=== PATIENT | female | born 1955 | race Caucasian/White ===

== ENCOUNTER 2016-05-09 16:59 | Inpatient (IN) | payer BC ==
[2016-05-09] MEDS ORDERED: IPRATROPIUM-ALBUTEROL 3 ML NEB INHALATION STA ×2 (17:38→19:38)
[2016-05-09] MEDS ORDERED: SODIUM CHLORIDE 0.9% 1,000 ML IV STA (17:38)
[2016-05-09] MEDS ORDERED: methylPREDNISolone SOD SUCCI 125 MG/2 ML VIAL IV STA (17:38)
[2016-05-09 17:56] LABS: Basophils # (A) 0.1 k/uL (0-0.2); Basophils % (A) 1 %; CHCM 30.1; Eosinophils # (A) 0.2 k/uL (0-0.7); Eosinophils % (A) 2 %; HCT 38.4 % (34.0-46.0); HDW 3.19; HGB 11.7 gm/dL (11.4-16.0); Hypochromasia Marked; Luc # (Auto) 0.28; Luc % (Auto) 4; Lymphocytes # (A) 1.1 k/uL (1.0-4.8); Lymphocytes % (A) 14 %; MCH 28.5 pg (25.0-35.0); MCHC 30.6 g/dL (31.0-37.0); MCV 93.2 fL (80.0-100.0); Mean Platelet Volume 8.8; Monocytes # (A) 0.7 k/uL (0-1.0); Monocytes % (A) 8 %; Neutrophils # (A) 5.6 k/uL (1.3-7.7); Neutrophils % (A) 71 %; RBC 4.13 m/uL (3.80-5.40); RDW 14.4 % (11.5-15.5); WBC 7.9 k/uL (3.8-10.6); WBC (Perox) 8.05
[2016-05-09 18:05] LABS: ALT 29 U/L (9-52); AST 28 U/L (14-36); Alkaline Phosphatase 55 U/L (38-126); Blood Urea Nitrogen 24 mg/dL (7-17); Calcium 8.8 mg/dL (8.4-10.2); Chloride 82 mmol/L (98-107); Glucose 127 mg/dL (74-99); Magnesium 1.9 mg/dL (1.6-2.3); Non-African American GFR(MDRD) >60 (>60 ml/min/1.73 sqM); Potassium 4.6 mmol/L (3.5-5.1); Sodium 136 mmol/L (137-145); Total Bilirubin 0.3 mg/dL (0.2-1.3); Total Protein 6.6 g/dL (6.3-8.2)
[2016-05-09 18:11] LABS: Anion Gap 7 mmol/L
[2016-05-09 18:12] LABS: INR 0.9 (<1.1); Prothrombin Time 9.7 sec (9.0-12.0)
[2016-05-09 18:14] LABS: Carbon Dioxide 47 mmol/L (22-30)
[2016-05-09 18:31] LABS: Creatine Kinase MB 2.1 ng/mL (0.0-2.4); Troponin I 0.017 ng/mL (0.000-0.034)
[2016-05-09 18:55] LABS: ABG PH 7.36 (7.35-7.45)
[2016-05-09 18:56] LABS: ABG HCO3 49 mmol/L (21-25); ABG PCO2 90 mmHg (35-45); ABG PO2 76 mmHg (83-108); ABG TCO2 52 mmol/L (19-24)
--- NOTE | 2016-05-09 19:09 | ED ---
SOB HPI - General Chief Complaint: Shortness of Breath Stated Complaint: KRIS Time Seen by Provider: 05/09/16 17:28 Source: patient Mode of arrival: wheelchair Limitations: no limitations - History of Present Illness Initial Comments: This 60-year-old white female presents with a complaint of shortness of breath which is been present for last 3 days. She denies any fever or cough. 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 She utilizes 3 L of oxygen per nasal cannula 24 hours per day. She sees Dr. Rai from pulmonology in regard to her severe COPD. She does relate that she previously was on BiPAP at home but this was stopped approximately 2 weeks ago as she is becoming significantly hypoxic with oxygen levels down into the high 60s and low 70s. Her CO2 apparently has been increasing regularly since then. She was just admitted at [facility] earlier this month. Her CO2 was approximately 87 at that time. The family member relates that she does get confused at times but not currently. She was apparently 70% pulse ox upon entrance to the ER. She denies any actual chest pain. No other complaints or modifying factors. - Related Data Home Medications Medication Instructions Recorded Confirmed Albuterol Nebulized [Ventolin 2.5 mg INHALATION RT-QID PRN 05/09/16 05/09/16 Nebulized] Aspirin EC [Ecotrin Low Dose] 81 mg PO DAILY 05/09/16 05/09/16 Fluticasone/Salmeterol [Advair 1 puff INHALATION RT-BID 05/09/16 05/09/16 500-50 Diskus] Folic Acid/Multivit-Min/Lutein 1 tab PO DAILY 05/09/16 05/09/16 [Therapeutic-M Tablet] Furosemide [Lasix] 1 tab PO DAILY 05/09/16 05/09/16 Metolazone [Zaroxolyn] 5 mg PO DAILY PRN 05/09/16 05/09/16 Potassium Chloride [Klor-Con] 1 tab PO DAILY 05/09/16 05/09/16 Tiotropium 18 Mcg/Puff [Spiriva] 1 cap INHALATION RT-DAILY 05/09/16 05/09/16 Allergies Allergy/AdvReac Type Severity Reaction Status Date / Time cephalexin [From Keflex] Allergy Unknown Verified 05/09/16 19:00 Review of Systems ROS Statement: Those systems with pertinent positive or pertinent negative responses have been documented in the HPI. ROS Other: All systems not noted in ROS Statement are negative. Past Medical History Past Medical History: Cancer, Heart Failure, COPD Additional Past Medical History / Comment(s): skin cancer History of Any Multi-Drug Resistant Organisms: None Reported Past Surgical History: No Surgical Hx Reported Past Psychological History: No Psychological Hx Reported Smoking Status: Former smoker Past Alcohol Use History: Occasional Past Drug Use History: None Reported General Exam - General Exam Comments Initial Comments: GENERAL: The patient is well nourished and well hydrated. VITAL SIGNS: Heart rate, blood pressure, respiratory rate reviewed as recorded in nurse's notes. EYES: Pupils are round and reactive. Extraocular movements are intact. No conjunctival / lid redness or swelling. ENT: No external evidence of injury, swelling, or ecchymosis. Airway is patent. Throat is clear. NECK: Nontender. No swelling or evidence of injury. No subcutaneous emphysema. Trachea is midline. No thyroid mass. HEART: Regular rate and rhythm. Good peripheral pulses. LUNGS/CHEST: There is decreased aeration bilaterally. No ecchymosis, subcutaneous emphysema, or tenderness. ABDOMEN: Abdomen soft without tenderness. No palpable masses or organomegaly. No peritoneal signs. No abdominal wall swelling or ecchymosis. EXTREMITIES: No extremity tenderness. Normal muscle tone and function. No thoracolumbar tenderness. NEUROLOGIC: Sensation is grossly intact. Cranial nerve exam reveals face is symmetrical, tongue is midline, speech is clear. SKIN: No abrasions or ecchymosis is noted. No induration or masses noted. PSYCHIATRIC: Alert and oriented. Appropriate behavior and judgment. Limitations: no limitations Course Vital Signs 05/09/16 05/09/16 05/09/16 17:12 17:40 17:45 Temperature 99.9 F H 98.8 F Pulse Rate 123 H 122 H Respiratory 26 H 26 H 26 H Rate Blood Pressure 108/59 O2 Sat by Pulse 90 L 93 L Oximetry 05/09/16 05/09/16 05/09/16 18:22 18:33 18:47 Temperature 98.0 F Pulse Rate 115 H 112 H 98 Respiratory 24 Rate Blood Pressure 163/72 O2 Sat by Pulse 97 Oximetry 05/09/16 05/09/16 19:19 19:48 Temperature Pulse Rate 117 H 121 H Respiratory 22 24 Rate Blood Pressure 114/63 O2 Sat by Pulse 90 L 88 L Oximetry Medical Decision Making - Medical Decision Making The patient was seen and examined. All diagnostics were reviewed. The EKG shows a sinus tachycardia at a rate of 121 with occasional PACs noted. There is a right bundle-branch block and associated ST-T wave changes. The MA interval is 122, QRS duration is 132, and QTc interval is 502. The patient had an ABG done which shows severe elevation of the pCO2 at 89.8, decreased pO2 at 76, and a pH of 7.36. Her bicarbonate level is 48.9. Her laboratories reviewed. Her chest x-ray is completed. She receives 2 DuoNeb breathing treatments as well as some Solu-Medrol. The chest x-ray shows new bilateral basilar infiltrates consistent with pneumonia. There is advanced COPD/ pulmonary fibrosis as well. The case is discussed with Dr. Thompson and he would like the patient placed back onto BiPAP. This is initiated. Triple antibiotic therapy is initiated for hospital-acquired pneumonia. It is felt as though the patient is critically ill, severely hypoxic, and has significant hypercapnia. She is tolerating this hypercapnia overall quite well and her mental status was normal. It is felt as though she would require urgent to the intensive care unit. The case also was discussed with internal medicine and they're agreeable to admission. Approximately 40 minutes critical care time was utilized and the treatment of the patient. - Lab Data Result diagrams: 05/09/16 17:28 05/09/16 17:28 Lab Results 05/09/16 05/09/16 05/09/16 Range/Units 17:28 17:28 17:28 WBC 7.9 (3.8-10.6) k/uL RBC 4.13 (3.80-5.40) m/uL Hgb 11.7 (11.4-16.0) gm/dL Hct 38.4 (34.0-46.0) % MCV 93.2 (80.0-100.0) fL MCH 28.5 (25.0-35.0) pg MCHC 30.6 L (31.0-37.0) g/dL RDW 14.4 (11.5-15.5) % Plt Count 162 (150-450) k/uL Neutrophils % 71 % Lymphocytes % 14 % Monocytes % 8 % Eosinophils % 2 % Basophils % 1 % Neutrophils # 5.6 (1.3-7.7) k/uL Lymphocytes # 1.1 (1.0-4.8) k/uL Monocytes # 0.7 (0-1.0) k/uL Eosinophils # 0.2 (0-0.7) k/uL Basophils # 0.1 (0-0.2) k/uL Hypochromasia Marked PT (9.0-12.0) sec INR (<1.1) APTT (22.0-30.0) sec D-Dimer (<0.60) mg/L FEU Sample Site ABG pH (7.35-7.45) ABG pCO2 (35-45) mmHg ABG pO2 (83-108) mmHg ABG HCO3 (21-25) mmol/L ABG Total CO2 (19-24) mmol/L ABG O2 Saturation (94-97) % ABG Base Excess mmol/L FiO2 % Sodium 136 L (137-145) mmol/L Potassium 4.6 (3.5-5.1) mmol/L Chloride 82 L (98-107) mmol/L Carbon Dioxide 47 H* (22-30) mmol/L Anion Gap 7 mmol/L BUN 24 H (7-17) mg/dL Creatinine 0.49 L (0.52-1.04) mg/dL Est GFR (MDRD) Af Amer >60 (>60 ml/min/1.73 sqM) Est GFR (MDRD) Non-Af >60 (>60 ml/min/1.73 sqM) Glucose 127 H (74-99) mg/dL Calcium 8.8 (8.4-10.2) mg/dL Magnesium 1.9 (1.6-2.3) mg/dL Total Bilirubin 0.3 (0.2-1.3) mg/dL AST 28 (14-36) U/L ALT 29 (9-52) U/L Alkaline Phosphatase 55 (38-126) U/L Total Creatine Kinase 26 L (30-135) U/L CK-MB (CK-2) 2.1 (0.0-2.4) ng/mL CK-MB (CK-2) Rel Index 8.1 Troponin I 0.017 (0.000-0.034) ng/mL NT-Pro-B Natriuret Pep pg/mL Total Protein 6.6 (6.3-8.2) g/dL Albumin 3.4 L (3.5-5.0) g/dL 05/09/16 05/09/16 05/09/16 Range/Units 17:28 17:28 18:09 WBC (3.8-10.6) k/uL RBC (3.80-5.40) m/uL Hgb (11.4-16.0) gm/dL Hct (34.0-46.0) % MCV (80.0-100.0) fL MCH (25.0-35.0) pg MCHC (31.0-37.0) g/dL RDW (11.5-15.5) % Plt Count (150-450) k/uL Neutrophils % % Lymphocytes % % Monocytes % % Eosinophils % % Basophils % % Neutrophils # (1.3-7.7) k/uL Lymphocytes # (1.0-4.8) k/uL Monocytes # (0-1.0) k/uL Eosinophils # (0-0.7) k/uL Basophils # (0-0.2) k/uL Hypochromasia PT 9.7 (9.0-12.0) sec INR 0.9 (<1.1) APTT 24.0 (22.0-30.0) sec D-Dimer 0.43 (<0.60) mg/L FEU Sample Site lbrach ABG pH 7.36 (7.35-7.45) ABG pCO2 90 H* (35-45) mmHg ABG pO2 76 L (83-108) mmHg ABG HCO3 49 H* (21-25) mmol/L ABG Total CO2 52 H (19-24) mmol/L ABG O2 Saturation 93.0 L (94-97) % ABG Base Excess 22.0 mmol/L FiO2 36 % Sodium (137-145) mmol/L Potassium (3.5-5.1) mmol/L Chloride (98-107) mmol/L Carbon Dioxide (22-30) mmol/L Anion Gap mmol/L BUN (7-17) mg/dL Creatinine (0.52-1.04) mg/dL Est GFR (MDRD) Af Amer (>60 ml/min/1.73 sqM) Est GFR (MDRD) Non-Af (>60 ml/min/1.73 sqM) Glucose (74-99) mg/dL Calcium (8.4-10.2) mg/dL Magnesium (1.6-2.3) mg/dL Total Bilirubin (0.2-1.3) mg/dL AST (14-36) U/L ALT (9-52) U/L Alkaline Phosphatase (38-126) U/L Total Creatine Kinase (30-135) U/L CK-MB (CK-2) (0.0-2.4) ng/mL CK-MB (CK-2) Rel Index Troponin I (0.000-0.034) ng/mL NT-Pro-B Natriuret Pep 3550 pg/mL Total Protein (6.3-8.2) g/dL Albumin (3.5-5.0) g/dL Disposition Clinical Impression: Acute respiratory failure, Acute exacerbation of chronic obstructive airways disease, Bilateral pneumonia, Hypercapnia, Hypoxia, End stage COPD, Sinus tachycardia Disposition: ADMITTED IP TO THIS HOSP Condition: Critical Time of Disposition: 19:55 Decision Date: 05/09/16 Decision Time: 19:55
--- NOTE | 2016-05-09 19:25 | XR ---
EXAMINATION TYPE: XR chest 2V DATE OF EXAM: 05/09/2016 7:09 PM COMPARISON: 01/10/2016 HISTORY: Difficulty breathing TECHNIQUE: Frontal and lateral views of the chest are obtained. FINDINGS: Heart is enlarged. There is coarsening of interstitial markings. There is pulmonary hyperi nflation. There are densely calcified granuloma at the left pulmonary hilum. There are chest leads. T here is some patchy infiltrate in both lower lobes. IMPRESSION: COPD and pulmonary fibrosis. There are new bilateral lower lobe pulmonary infiltrates co mpared to last exam. No gross heart failure.
[2016-05-09] MEDS ORDERED: LEVOFLOXACIN 500MG-D5W PMX 500 MG in DEXTROSE/WATER 1 100ML.BAG IVPB STA (19:38)
[2016-05-09] MEDS ORDERED: VANCOMYCIN 1,000 MG in SODIUM CHLORIDE 0.9% 250 ML IVPB STA (19:38)
[2016-05-09] MEDS ORDERED: IV VANCOMYCIN PER PHARMACY 1 EACH MISC MISCELLANE PRN (19:38)
[2016-05-09] MEDS ORDERED: PIPERACILLIN-TAZOBACTAM 3.375 GM in DEXTROSE/WATER 1 50ML.BAG IVPB STA (19:38)
[2016-05-09] MEDS ORDERED: NALOXONE 0.4 MG/ML 1 ML VIAL IV PRN (19:56)
[2016-05-09] MEDS ORDERED: ACETAMINOPHEN TAB 325 MG TAB PO PRN (19:56)
[2016-05-09] MEDS ORDERED: PNEUMONIA PROTOCOL UTILIZED 1 EACH MISC PO PRN (20:00)
[2016-05-09] MEDS ORDERED: BUDESONIDE 0.5 MG/2 ML NEBU INHALATION SCH (20:00)
[2016-05-09] MEDS ORDERED: METOLAZONE 5 MG TAB PO PRN (20:03)
[2016-05-09 21:12] LABS: Glucose,Whole Blood 165 mg/dL (75-99)
[2016-05-09] MEDS ORDERED: HYDROcodone/APAP 5-325MG 1 EACH TAB PO PRN (21:28)
[2016-05-09] MEDS ORDERED: TEMAZEPAM 15 MG CAP PO PRN (21:28)
[2016-05-09] MEDS ORDERED: LORazepam 1 MG TAB PO PRN (21:28)
[2016-05-09] MEDS: POTASSIUM CHLORIDE ER 20 MEQ TAB.ER PO SCH (23:09)
[2016-05-09] MEDS: PANTOPRAZOLE 40 MG/10 ML VIAL IV SCH (23:33)
[2016-05-09] MEDS: methylPREDNISolone SOD SUCCI 125 MG/2 ML VIAL IV SCH (23:33)
[2016-05-10 00:15] LABS: Creatine Kinase 24 U/L (30-135)
[2016-05-10 00:28] LABS: Creatine Kinase MB 1.8 ng/mL (0.0-2.4); Troponin I <0.012 ng/mL (0.000-0.034)
[2016-05-10 01:14] LABS: Hemoglobin A1C 5.2 % (4.2-6.1)
[2016-05-10 02:37] VITALS: BMI 22.2
[2016-05-10 05:38] LABS: Basophils % (A) 0 %; CH 27.5; CHCM 29.3; Eosinophils % (A) 0 %; HDW 3.16; HGB 10.9 gm/dL (11.4-16.0); Hypochromasia Marked; Luc # (Auto) 0.05; Luc % (Auto) 1; Lymphocytes # (A) 0.4 k/uL (1.0-4.8); Lymphocytes % (A) 7 %; MCH 27.8 pg (25.0-35.0); MCHC 29.6 g/dL (31.0-37.0); MCV 94.1 fL (80.0-100.0); Mean Platelet Volume 7.9; Monocytes # (A) 0.1 k/uL (0-1.0); Monocytes % (A) 1 %; Neutrophils # (A) 4.5 k/uL (1.3-7.7); Neutrophils % (A) 90 %; RBC 3.93 m/uL (3.80-5.40); RDW 14.1 % (11.5-15.5); WBC (Perox) 5.45
[2016-05-10 05:48] LABS: Blood Urea Nitrogen 20 mg/dL (7-17); Calcium 9.4 mg/dL (8.4-10.2); Chloride 86 mmol/L (98-107); Glucose 128 mg/dL (74-99); Magnesium 1.9 mg/dL (1.6-2.3); Non-African American GFR(MDRD) >60 (>60 ml/min/1.73 sqM); Phosphorous 4.3 mg/dL (2.5-4.5); Potassium 4.8 mmol/L (3.5-5.1); Sodium 135 mmol/L (137-145)
[2016-05-10 06:06] LABS: Anion Gap 4 mmol/L; Carbon Dioxide 45 mmol/L (22-30)
[2016-05-10 06:11] LABS: Creatine Kinase 25 U/L (30-135)
[2016-05-10 06:22] LABS: Troponin I <0.012 ng/mL (0.000-0.034)
[2016-05-10] MEDS: methylPREDNISolone SOD SUCCI 125 MG/2 ML VIAL IV SCH ×3 (06:43→18:33)
[2016-05-10] MEDS: BUDESONIDE 1 MG/2 ML NEBU INHALATION SCH ×2 (07:31→20:53)
[2016-05-10] MEDS: IPRATROPIUM-ALBUTEROL 3 ML NEB INHALATION PRN ×4 (07:31→20:54)
[2016-05-10] MEDS: FORMOTEROL FUMARATE 20 MCG/2 ML NEBU INHALATION SCH ×2 (07:31→20:54)
--- NOTE | 2016-05-10 07:42 | XR ---
EXAMINATION TYPE: XR chest 1V portable DATE OF EXAM: 05/10/2016 6:56 AM CLINICAL HISTORY: Difficulty breathing progress study. History of COPD and CHF. TECHNIQUE: Single AP portable upright view of the chest is obtained. COMPARISON: Chest x-ray from one day earlier FINDINGS: Calcified left hilar nodules are redemonstrated. There is persistent mild cardiomegaly. Th ere is new blunting of left lateral costophrenic angle consistent with small pleural effusion. Patchy bibasilar atelectasis and/or infiltrate remains present. Underlying emphysematous change is likely p resent. Osseous structures are intact. IMPRESSION: Chronic emphysematous change and cardiomegaly with patchy bibasilar atelectasis and/or in filtrate all redemonstrated felt stable, new small left pleural effusion noted.
[2016-05-10] MEDS ORDERED: VANCOMYCIN 1,000 MG in SODIUM CHLORIDE 0.9% 250 ML IVPB SCH (08:00)
[2016-05-10] MEDS ORDERED: SYMBICORT 160-4.5 MCG INHALER INHALATION SCH (08:00)
[2016-05-10] MEDS ORDERED: PIPERACILLIN-TAZOBACTAM 3.375 GM in DEXTROSE/WATER 1 50ML.BAG IVPB SCH (08:00)
--- NOTE | 2016-05-10 08:12 | HP ---
DATE OF ADMISSION: CHIEF COMPLAINT: Shortness of breath. HISTORY OF PRESENT ILLNESS: This 60-year-old woman with a past medical history of COPD, history of CHF, history of skin cancer being, being followed by Dr. Staley and Dr. Rai in the outpatient setting apparently stop smoking about a month ago. The patient is receiving oxygen at home. The patient is also using BiPAP. Per Dr. Rai's recommendations, the patient is off BiPAP for the last several days. Patient had increased shortness of breath and cough. Today the patient also feels drowsy and the CO2 was apparently increasing and the patient came to [facility] and was admitted for further evaluation and treatment. The pulse ox is around 70. The patient also had some cough and sputum also. The chest x-ray on admission, which was reviewed personally by me, showed pulmonary fibrosis and bilateral lower lobe pulmonary infiltrates compared to the previous one. The patient admitted for further evaluation and treatment. There is no history of any rigors. No history headache, loss of consciousness or seizures at this time. PAST MEDICAL HISTORY: History of CHF, history of COPD, history of skin cancer. Medications prior to admission include: 1. Spiriva 1 puff daily. 2. Klor-Con 20 mEq p.o. b.i.d. 3. Zaroxolyn 5 mg daily p.r.n. 4. Lasix 40 mg p.o. daily. 5. Multivitamin 1 p.o. daily. 6. Advair 500/50 one puff b.i.d. 7. Ecotrin 81 mg daily. 8. Ventolin 2.5 q.i.d. p.r.n. Allergies are KEFLEX. FAMILY HISTORY: No history of heart disease or strokes in the family. SOCIAL HISTORY: History of smoking until recently. No history of alcohol intake. REVIEW OF SYSTEMS: ENT: No diminished hearing or diminished vision. CARDIOVASCULAR: As mentioned earlier. RESPIRATORY: As mentioned earlier. GI: No nausea or vomiting. : No dysuria. NERVOUS SYSTEM: No numbness or weakness. ALLERGY/IMMUNOLOGY: No asthma or hayfever. MUSCULOSKELETAL: As mentioned earlier. HEMATOLOGY/ONCOLOGY: No history of anemia. ENDOCRINE: No history of diabetes or hypothyroidism. CONSTITUTIONAL: As mentioned earlier. DERMATOLOGY: Negative. RHEUMATOLOGY: Negative. PSYCHIATRY: As mentioned earlier. PHYSICAL EXAMINATION: The patient is alert and oriented x3. Pulse 119, blood pressure 116/65, respirations 22, temperature 97.7, pulse ox 90% on BiPAP and 88% on nasal cannula on admission. HEENT: Conjunctivae normal. Oral mucosa moist. NECK: No jugular venous distention. No carotid bruit. No lymph node enlargement. Accessory muscles of respiration acting. CARDIOVASCULAR: S1 and S2, muffled. No S3, no S4. RESPIRATION: Chest emphysematous, bilateral expiratory wheezing and crackles also heard. Breath sounds are markedly diminished at the bases. ABDOMEN: Soft, scaphoid, nontender. No mass palpable. LEGS: No edema, no swelling. NERVOUS SYSTEM: Higher function as mentioned. Moves all 4 limbs. No focal motor or sensory deficits. LYMPHATICS: No lymphadenopathy of neck, axillae or groin. SKIN: No ulcer, rash, bleeding. LABS: CBC within normal limits. INR 0.9. ABGs pH of 7.36, pCO2 is 90. Sodium is 136, potassium 4.6, CO2 is 47. Influenza is negative. Albumin 3.4. ASSESSMENT: 1. Chronic obstructive pulmonary disease acute exacerbation as well as bibasilar pneumonia, possibly gram-negative with acute hypoxic hypercarbic respiratory failure. 2. Change in mental status, metabolic encephalopathy secondary to acute hypoxic hypercarbic respiratory failure. 3. Rule out interstitial pulmonary fibrosis. 4. Hyponatremia. 5. Increased CO2. 6. Increased random blood sugar. 7. Mild hypoalbuminemia, mild to moderate protein calorie malnutrition. 8. History of chronic obstructive pulmonary disease. 9. History of congestive heart failure. 10. History of skin cancer. 11. History of nicotine dependence. 12. FULL CODE. RECOMMENDATIONS AND DISCUSSION: This 60-year-old woman presented with multiple complex medical issues. We will continue the current medications, continue with symptomatic treatment. At this time I would recommend intensive bronchodilator treatment, empiric antibiotics and steroids. Monitor blood sugars closely. Otherwise, closely follow with Dr. Thompson. Esme. Guarded prognosis because of multiple complex medical issues. Further recommendations to follow. A copy of this dictation is being forwarded to Dr. Staley who is the primary physician. [facility]
[2016-05-10 08:13] LABS: Glucose,Whole Blood 110 mg/dL (75-99)
[2016-05-10] MEDS: INSULIN LISPRO (humaLOG) 300 UNIT/3 ML VIAL SQ SCH ×4 (08:23→20:31)
[2016-05-10] MEDS: ASPIRIN 81 MG CHEW PO SCH (08:23)
[2016-05-10] MEDS: POTASSIUM CHLORIDE ER 20 MEQ TAB.ER PO SCH ×2 (08:24→20:18)
[2016-05-10] MEDS: FUROSEMIDE 40 MG TAB PO SCH (08:24)
[2016-05-10] MEDS: ENOXAPARIN 40 MG/0.4 ML SYRINGE SQ SCH (08:24)
[2016-05-10] MEDS: PANTOPRAZOLE 40 MG/10 ML VIAL IV SCH (09:50)
--- NOTE | 2016-05-10 10:13 | ECHOF ---
Referral Reason:sob MEASUREMENTS -------- HEIGHT: 152.4 cm WEIGHT: 51.7 kg BP: 117/60 RVIDd: 4.5 cm (< 3.3) IVSd: 1.6 cm (0.6 - 1.1) LVIDd: 3.3 cm (3.9 - 5.3) LVPWd: 1.2 cm (0.6 - 1.1) IVSs: 1.7 cm LVIDs: 2.1 cm LVPWs: 1.2 cm LA Diam: 2.6 cm (2.7 - 3.8) Ao Diam: 3.1 cm (2.0 - 3.7) AV Cusp: 1.8 cm (1.5 - 2.6) LA Diam: 3.6 cm (2.7 - 3.8) MV EXCURSION: 14.230 mm (> 18.000) MV EF SLOPE: 72 mm/s (70 - 150) EPSS: 0.2 cm MV E Yossi: 0.88 m/s MV DecT: 221 ms MV A Yossi: 1.33 m/s MV E/A Ratio: 0.66 RAP: 15.00 mmHg RVSP: 84.53 mmHg FINDINGS -------- Sinus rhythm. This was a technically adequate study. The left ventricular size is normal. There is moderate concentric left ventricular hypertrophy. Overall left ventricular systolic function is normal with, an EF between 55 - 60 %. The right ventricle is severely enlarged. The right ventricular septal wall is flattened in diastole and systole which is consistent with right ventricular volume and pressure overload. The left atrial size is normal. The right atrium is moderately enlarged. The aortic valve is trileaflet and appears structurally normal. There is no evidence of aortic regurgitation. The mitral valve leaflets are mildly thickened. Mild mitral regurgitation is present. The tricuspid valve appears structurally normal. Moderate to severe tricuspid regurgitation present. There is severe pulmonary hypertension. The right ventricular systolic pressure, as measured by Doppler, is 84.53mmHg. Trace/mild (physiologic) pulmonic regurgitation. The aortic root size is normal. There is no pericardial effusion. CONCLUSIONS -------- 1. There is moderate concentric left ventricular hypertrophy. 2. There is severe pulmonary hypertension. 3. The right ventricular systolic pressure, as measured by Doppler, is 84.53mmHg. 4. Overall left ventricular systolic function is normal with, an EF between 55 - 60 %. 5. The right ventricle is severely enlarged. 6. The right ventricular septal wall is flattened in diastole and systole which is consistent with right ventricular volume and pressure overload. 7. The left atrial size is normal. 8. The right atrium is moderately enlarged. 9. The aortic valve is trileaflet and appears structurally normal. 10. Mild mitral regurgitation is present. 11. Moderate to severe tricuspid regurgitation present. BLASTING HELPER: Liset Faulkner RDCS
[2016-05-10] MEDS ORDERED: SODIUM CHLORIDE 0.9% 1,000 ML IV SCH (10:15)
[2016-05-10 11:44] LABS: Glucose,Whole Blood 170 mg/dL (75-99)
[2016-05-10] MEDS ORDERED: MULTIVITAMINS, THERA 1 EACH TAB PO SCH (12:00)
[2016-05-10 12:47] LABS: Appearance,Urine Clear (Clear); Bilirubin,Urine Negative (Negative); Glucose,Urine (UA) Negative (Negative); Ketones,Urine Negative (Negative); Leukocyte Esterase,Urine Negative (Negative); Nitrite,Urine Negative (Negative); Protein,Urine Negative (Negative); Specific Gravity,Urine 1.007 (1.001-1.035); UA Billing (MACRO vs. MICRO) CHEM; Urobilinogen,Urine <2.0 mg/dL (<2.0)
--- NOTE | 2016-05-10 13:14 | P.CNPUL ---
History of Present Illness Consult date: 05/10/16 Requesting physician: Meena Casiano Reason for consult: COPD Chief complaint: Shortness of breath History of present illness: This is a 60-year-old female with history of COPD, severe end-stage, O2 dependent, has been placed recently on BiPAP by Dr. Rai on outpatient basis , and this is mostly because of her severe underlying gold stage IV COPD, and chronic hypercapnic respiratory failure. Patient was recently having lots of issues with the BiPAP, and her issues seem to be related to desaturation when she uses her BiPAP in spite of flowing go to the area 3 L nasal cannula into the mask. According to the patient and , O2 saturation drops down to the 70s when oxygen used via BiPAP. Patient had a recent CT of the chest by Dr. Rai to look into pulmonary embolism, there was no evidence of pulmonary embolism, but there was evidence of nonspecific minimal interstitial changes, not felt to be clinically significant. The radiologist however mentioned possible pneumonitis in both lungs. I reviewed the CT of the chest report and I reviewed the chest x-ray today, and clearly there is no evidence of pneumonia. Patient presented to the ER with a few days' history of increased shortness of breath, cough which is productive with whitish phlegm, she was also feeling drowsy with significant elevation noted in the pCO2 on the blood gases done in the ER. Patient was noted to have a pO2 of 76 pCO2 of 90 and pH of 7.36 and this was on FiO2 of 36%. Patient was admitted to the ICU placed on BiPAP, and this consult was initiated. Presently the patient is doing well, no headache, no blurred vision, no dizziness, no chest pain, no fever, no chills, no hemoptysis, no nausea no vomiting no abdominal pain no melena no hematemesis no dysuria and no frequency no urgency. Review of Systems 14 point review of systems were obtained, please refer to pertinent positives and negatives in HPI. Past Medical History Past Medical History: Cancer, Heart Failure, COPD Additional Past Medical History / Comment(s): skin cancer, home O2 3 L, bipap at HS History of Any Multi-Drug Resistant Organisms: None Reported Past Surgical History: No Surgical Hx Reported Past Anesthesia/Blood Transfusion Reactions: No Reported Reaction Past Psychological History: No Psychological Hx Reported Smoking Status: Former smoker Past Alcohol Use History: Occasional Past Drug Use History: None Reported Medications and Allergies Home Medications Medication Instructions Recorded Confirmed Type Albuterol Nebulized [Ventolin 2.5 mg INHALATION RT-QID PRN 05/09/16 05/09/16 History Nebulized] Aspirin EC [Ecotrin Low Dose] 81 mg PO DAILY 05/09/16 05/09/16 History Fluticasone/Salmeterol [Advair 1 puff INHALATION RT-BID 05/09/16 05/09/16 History 500-50 Diskus] Folic Acid/Multivit-Min/Lutein 1 tab PO DAILY 05/09/16 05/09/16 History [Therapeutic-M Tablet] Furosemide [Lasix] 40 mg PO DAILY 05/09/16 05/09/16 History Metolazone [Zaroxolyn] 5 mg PO DAILY PRN 05/09/16 05/09/16 History Potassium Chloride [Klor-Con] 20 meq PO BID 05/09/16 05/09/16 History Tiotropium 18 Mcg/Puff [Spiriva] 1 cap INHALATION RT-DAILY 05/09/16 05/09/16 History Allergies Allergy/AdvReac Type Severity Reaction Status Date / Time cephalexin [From Keflex] Allergy Unknown Verified 05/09/16 19:00 Physical Exam Vitals: Vital Signs Temp Pulse Resp BP Pulse Ox 05/10/16 11:15 100 05/10/16 11:07 104 H 05/10/16 10:00 100 33 H 118/75 93 L 05/10/16 09:00 108 H 33 H 116/62 93 L 05/10/16 08:01 100 05/10/16 08:00 97.4 F L 107 H 33 H 113/65 91 L 05/10/16 07:45 103 H 05/10/16 07:43 103 H 05/10/16 07:32 99 05/10/16 07:00 99 26 H 110/57 95 05/10/16 06:00 104 H 33 H 109/65 89 L 05/10/16 05:00 103 H 38 H 111/62 87 L 05/10/16 04:00 98.0 F 107 H 15 111/66 97 05/10/16 03:00 104 H 36 H 105/64 90 L 05/10/16 02:00 111 H 31 H 111/63 87 L 05/10/16 01:00 111 H 38 H 105/71 88 L 05/10/16 00:00 97.5 F L 110 H 32 H 111/67 91 L 05/09/16 23:30 31 H 05/09/16 23:00 111 H 26 H 110/62 95 05/09/16 22:00 114 H 23 115/70 90 L 05/09/16 21:00 97.9 F 114 H 22 109/68 91 L 05/09/16 20:20 97.7 F 117 H 22 116/65 90 L 05/09/16 20:14 118 H Intake and Output 05/09/16 05/10/16 05/10/16 22:59 06:59 14:59 Intake Total 210 870.0 425 Output Total 400 Balance 210 870.0 25 Intake: IV 150 750.0 415 0.9 NS 10 Piperacillin-Tazobactam 3 125.0 50 .375 gm In Dextrose/Water 1 50ml.bag @ 12.5 mls/hr IVPB ONCE STA Rx#: [id number] Sodium Chloride 0.9% 1, 150 375 105 000 ml @ 75 mls/hr IV . [id number] STA Rx#:[id number] Vancomycin 1,000 mg In 250 250 Sodium Chloride 0.9% 250 ml @ 125 mls/hr IVPB ONCE STA Rx#:[id number] Intake, IV Titration 10 Amount Sodium Chloride 0.9% 1, 10 000 ml @ 10 mls/hr IV . Q24H [place] Rx#:[id number] Oral 60 120 Output: Urine 400 Other: Voiding Method Toilet Toilet # Voids 1 1 Weight 51.71 kg 51.71 kg Patient Weight 05/11/16 06:59 Weight 51.71 kg Physical Exam: Revealed a 60-year-old female frail looking, chronically ill. HEENT:[Neck is supple.] [No neck masses.] [No thyromegaly.] [No JVD.] Chest: [Diminished breath sound bilaterally, no crackles or rhonchi or wheezes] Cardiac Exam: [Normal S1 and S2, no S3 gallop, no murmur.] Abdomen: [Soft, nontender, no megaly, no rebound, no guarding, normal bowel sounds.] Extremities: [No clubbing, 2+ bipedal edema, no cyanosis.] Neurological Exam: [No focal neurologic deficit.] Results - Laboratory Findings CBC and BMP: 05/10/16 05:20 05/10/16 05:20 ABG ABG pH 7.36 (7.35-7.45) 05/09/16 18:09 ABG pCO2 90 mmHg (35-45) H* 05/09/16 18:09 ABG pO2 76 mmHg (83-108) L 05/09/16 18:09 ABG O2 Saturation 93.0 % (94-97) L 05/09/16 18:09 PT/INR, D-dimer PT 9.7 sec (9.0-12.0) 05/09/16 17:28 INR 0.9 (<1.1) 05/09/16 17:28 D-Dimer 0.46 mg/L FEU (<0.60) 05/10/16 05:20 Abnormal lab findings: Abnormal Labs 05/09/16 05/09/16 05/10/16 20:38 23:30 05:20 Hgb MCHC Lymphocytes # Sodium Chloride Carbon Dioxide BUN Creatinine Glucose POC Glucose (mg/dL) 165 H Total Creatine Kinase 24 L 25 L 05/10/16 05/10/16 05/10/16 05:20 05:20 08:11 Hgb 10.9 L MCHC 29.6 L Lymphocytes # 0.4 L Sodium 135 L Chloride 86 L Carbon Dioxide 45 H* BUN 20 H Creatinine 0.42 L Glucose 128 H POC Glucose (mg/dL) 110 H Total Creatine Kinase 05/10/16 11:42 Hgb MCHC Lymphocytes # Sodium Chloride Carbon Dioxide BUN Creatinine Glucose POC Glucose (mg/dL) 170 H Total Creatine Kinase - Diagnostic Findings Chest x-ray: image reviewed (Chronic emphysematous changes, cardiomegaly, bibasilar atelectasis is noted and a small tiny left pleural effusion was also noted.) Assessment and Plan Plan: Impression: 1 acute on chronic hypercapnic respiratory failure secondary to COPD exacerbation. 2 acute metabolic encephalopathy secondary to CO2 narcosis and hypercarbia. 3 severe underlying COPD, gold stage IV. 4 chronic hypoxic respiratory failure secondary to COPD. 5 history of congestive heart failure 6 severe pulmonary hypertension secondary to COPD, recent CT of the chest showed no evidence of pulmonary embolism. 7 history of chronic cor pulmonale secondary to pulmonary hypertension 8 history of nicotine dependence 9 history of minimal nonspecific interstitial fibrosis, not felt to be clinically significant. Recommendation: I fully agree with the present treatment plan including bronchodilators, diuretics, empiric antibiotics, Solu-Medrol, BiPAP intermittently as needed, oxygen, and we'll continue to follow. However the patient could be considered for transfer out of the ICU today. Discussed her condition with her and with her at bedside, made aware that she has severe end-stage lung disease with very poor prognosis. Time with Patient: Greater than 30
[2016-05-10] MEDS: TIOTROPIUM 18 MCG/PUFF INHALER INHALATION SCH (16:02)
[2016-05-10 16:47] LABS: Glucose,Whole Blood 129 mg/dL (75-99)
[2016-05-10] MEDS ORDERED: LEVOFLOXACIN 750MG-D5W PMX 750 MG in DEXTROSE/WATER 1 150ML.BAG IVPB SCH (20:00)
[2016-05-10 20:09] LABS: Glucose,Whole Blood 182 mg/dL (75-99)
--- NOTE | 2016-05-10 22:17 | PN ---
DATE OF SERVICE: 05/10/2016 This 60-year-old woman who was admitted with COPD, acute exacerbation, as well as bibasilar pneumonia, also had features of acute respiratory failure. The patient also had change in mental status. Patient is being closely monitored at this time. Patient also has a significant history of smoking. Her 2-D echo showed ejection fraction of 55% to 60%. Past medical history reviewed. REVIEW OF SYSTEMS: CARDIOVASCULAR SYSTEM: No angina, palpitations. RESPIRATORY SYSTEM: As mentioned earlier. GI: As mentioned earlier. : No dysuria. NERVOUS SYSTEM: No numbness or weakness. Current medications are reviewed and include: 1. Tylenol 650 q.4 p.r.n. 2. [place] 5 mg q.6 p.r.n. 3. DuoNeb q.i.d. and p.r.n. 4. Aspirin 81 mg daily. 5. Pulmicort 1 mg b.i.d. 6. Lovenox 40 mg subcutaneously daily. 7. Perforomist 20 mg b.i.d. 8. Lasix 40 mg daily. 9. Humalog scale. 10. Levaquin 750 daily. 11. Ativan 0.5 q.8 p.r.n. 12. Solu-Medrol 60 IV q.6. 13. Zaroxolyn. 14. Multivitamins. 15. Narcan. 16. Protonix 40 mg daily. 17. Restoril. 18. Spiriva 1 puff daily. PHYSICAL EXAMINATION: Patient is alert and oriented x3. Pulse 100, blood pressure 118/75, respiration 33, temperature normal, pulse ox 96% on 3 L. HEENT: Conjunctivae normal. Oral mucosa moist. NECK: No jugular venous distention. No carotid bruit. Accessory muscles of respiration acting. Breathing efforts are markedly increased. CARDIOVASCULAR: S1 and S2 muffled. No S3. No S4. RESPIRATORY: Breath sounds diminished at the bases. Bilateral scattered rhonchi and crackles. Chest emphysematous. ABDOMEN: Soft, nontender. LEGS: No edema. No swelling. NERVOUS SYSTEM: No focal deficit. LABS: WBC 5, hemoglobin 10.9. Sodium 135. CO2 is 45. Accu-Cheks are noted. Repeat chest x-ray shows emphysematous changes and possible bibasilar atelectasis. ASSESSMENT: 1. Chronic obstructive pulmonary disease, acute exacerbation, as well as possibly severe acute purulent tracheobronchitis and possible bronchopneumonia with possibly Gram-negative with acute hypoxic hypercarbic respiratory failure. 2. Change in mental status, metabolic encephalopathy secondary to acute hypoxic hypercarbic respiratory failure. Rule out interstitial pulmonary fibrosis. 3. Hyponatremia. 4. Increased carbon dioxide. 5. Increased random blood sugar. 6. Mild hypoalbuminemia with mild to moderate protein-calorie malnutrition. 7. Chronic obstructive pulmonary disease. 8. History of congestive heart failure with chronic diastolic dysfunction; ejection fraction 50% to 60%. 9. History of skin cancer. 10. History of nicotine dependence. 11. Severe pulmonary hypertension secondary to chronic obstructive pulmonary disease. 12. Chronic cor pulmonale secondary to pulmonary hypertension. RECOMMENDATIONS AND DISCUSSION: I recommend to continue with the current medications, continue with IV steroids, continue with bronchodilators, continue DVT prophylaxis, empiric antibiotics. Closely follow with Dr. Thompson. Guarded prognosis because of multiple complex medical issues. Further recommendations to follow.
[2016-05-11] MEDS: methylPREDNISolone SOD SUCCI 125 MG/2 ML VIAL IV SCH ×2 (00:15→05:53)
[2016-05-11] MEDS ORDERED: VANCOMYCIN TROUGH DUE 1 EACH MISC MISCELLANE ONE (07:00)
[2016-05-11] MEDS ORDERED: PANTOPRAZOLE 40 MG TABLET PO SCH ×2 (07:30→09:00)
[2016-05-11 07:33] LABS: Glucose,Whole Blood 105 mg/dL (75-99)
[2016-05-11 07:43] VITALS: BP 121/69; RESP 18; TEMP 96.4
[2016-05-11 08:18] LABS: Basophils % (A) 0 %; CH 27.6; CHCM 29.6; Eosinophils % (A) 0 %; HCT 36.4 % (34.0-46.0); HDW 3.17; HGB 10.7 gm/dL (11.4-16.0); Hypochromasia Marked; Luc # (Auto) 0.04; Luc % (Auto) 1; Lymphocytes # (A) 0.4 k/uL (1.0-4.8); Lymphocytes % (A) 10 %; MCH 27.5 pg (25.0-35.0); MCHC 29.5 g/dL (31.0-37.0); MCV 93.4 fL (80.0-100.0); Mean Platelet Volume 7.9; Monocytes # (A) 0.1 k/uL (0-1.0); Monocytes % (A) 4 %; Neutrophils # (A) 3.2 k/uL (1.3-7.7); Neutrophils % (A) 85 %; RDW 14.3 % (11.5-15.5); WBC 3.7 k/uL (3.8-10.6); WBC (Perox) 3.94
[2016-05-11] MEDS: IPRATROPIUM-ALBUTEROL 3 ML NEB INHALATION PRN ×2 (08:22→11:28)
[2016-05-11] MEDS: BUDESONIDE 1 MG/2 ML NEBU INHALATION SCH (08:23)
[2016-05-11] MEDS: TIOTROPIUM 18 MCG/PUFF INHALER INHALATION SCH ×2 (08:23→08:27)
[2016-05-11] MEDS: FORMOTEROL FUMARATE 20 MCG/2 ML NEBU INHALATION SCH (08:23)
[2016-05-11 08:40] LABS: Blood Urea Nitrogen 19 mg/dL (7-17); Calcium 9.5 mg/dL (8.4-10.2); Chloride 85 mmol/L (98-107); Glucose 106 mg/dL (74-99); Non-African American GFR(MDRD) >60 (>60 ml/min/1.73 sqM); Potassium 4.8 mmol/L (3.5-5.1); Sodium 135 mmol/L (137-145)
[2016-05-11 08:55] LABS: Anion Gap 5 mmol/L
[2016-05-11 09:03] LABS: Carbon Dioxide 45 mmol/L (22-30)
[2016-05-11] MEDS: INSULIN LISPRO (humaLOG) 300 UNIT/3 ML VIAL SQ SCH (09:06)
[2016-05-11] MEDS: ENOXAPARIN 40 MG/0.4 ML SYRINGE SQ SCH (09:07)
[2016-05-11] MEDS: POTASSIUM CHLORIDE ER 20 MEQ TAB.ER PO SCH (09:07)
[2016-05-11] MEDS: ASPIRIN 81 MG CHEW PO SCH (09:07)
[2016-05-11] MEDS: FUROSEMIDE 40 MG TAB PO SCH (09:07)
[2016-05-11 11:12] LABS: Glucose,Whole Blood 124 mg/dL (75-99)
[2016-05-11 11:31] VITALS: PULSE 96
--- NOTE | 2016-05-12 15:37 | DS ---
DATE OF ADMISSION: 05/09/2016 DATE OF DISCHARGE: 05/11/2016 FINAL DIAGNOSES: 1. Chronic obstructive pulmonary disease, acute exacerbation as well as possibly severe acute tracheobronchitis possibly early bronchopneumonia with possible gram-negative with acute hypoxic respiratory failure. 2. Change in mental status, metabolic encephalopathy secondary to acute hypoxic hypercarbic respiratory failure. 3. Rule out interstitial pulmonary fibrosis. 4. Hyponatremia. 5. Increased CO2. 6. Increased random blood sugar. 7. Mild hypoalbuminemia with mild to moderate protein calorie malnutrition. 8. Chronic obstructive pulmonary disease. 9. History of congestive heart failure with chronic diastolic dysfunction, ejection fraction 50% to 60%. 10. History of skin cancer. 11. History nicotine dependence. 12. Severe pulmonary hypertension from chronic obstructive pulmonary disease. 13. Chronic cor pulmonale secondary to pulmonary hypertension. 14. FULL CODE. DISCHARGE DISPOSITION: Patient is discharged in stable condition with guarded prognosis. Dr. Thompson cleared the patient for discharge. HISTORY OF PRESENT ILLNESS: This 60-year-old woman with a past medical history of multiple medical problems was admitted with COPD and bronchopneumonia and multiple other medical issues. Patient treated symptomatically with antibiotics, bronchodilators, and steroids. The patient improved significantly. Dr. Thompson saw the patient and cleared for discharge. A 2-D echo showed ejection fraction 55 and 60%. On exam, currently vitals are stable. CARDIOVASCULAR: S1, S2. ABDOMEN: Soft. RESPIRATORY: A few scattered rhonchi. DISCHARGE ADVICE: 1. Diet is cardiac. 2. Activity limited until follow up. 3. Follow up with Dr. Staley in 2 to 3 days. 4. Follow up with Dr. Rai as recommended. MEDICATIONS: 1. Ventolin inhaler q.i.d. 2. Ecotrin 81 mg daily. 3. Fluticasone salmeterol 1 puff b.i.d. 4. Folic acid and multivitamin 1 p.o. daily. 5. Lasix 40 mg daily. 6. Levaquin 750 daily for 5 days. 7. Zaroxolyn 5 mg p.o. daily. 8. Klor-Con 20 mg p.o. b.i.d. 9. Spiriva 1 puff daily. 10. Prednisone taper 40 mg p.o. daily for 3 days, 30 for 3 days, 20 for 3 days, 10 for 3 days and then discontinue. Once again the patient will be discharged in stable condition with guarded prognosis.
== END 2016-05-11 12:20 | disposition home or self-care (01) | DRG 190 ==
LOC: EC 16:59 → SUPCPDRO 16:59 → 6ICU 20:04 → 5MS5E 05-10 11:18
PROVIDERS: ADMIT Internal Medicine; ATTEND Internal Medicine
DX: J44.0 Chronic obstructive pulmonary disease with (acute) lower respiratory infection (principal); J96.21 Acute and chronic respiratory failure with hypoxia; J15.6 Pneumonia due to other Gram-negative bacteria; J96.22 Acute and chronic respiratory failure with hypercapnia; G93.41 Metabolic encephalopathy; I50.32 Chronic diastolic (congestive) heart failure; J44.1 Chronic obstructive pulmonary disease with (acute) exacerbation; E44.0 Moderate protein-calorie malnutrition; E87.1 Hypo-osmolality and hyponatremia; I27.81 Cor pulmonale (chronic); I27.2 Other secondary pulmonary hypertension; J84.10 Pulmonary fibrosis, unspecified; J20.9 Acute bronchitis, unspecified; I45.10 Unspecified right bundle-branch block; Z99.81 Dependence on supplemental oxygen; Z85.828 Personal history of other malignant neoplasm of skin; Z87.891 Personal history of nicotine dependence; Z86.711 Personal history of pulmonary embolism; Z79.82 Long term (current) use of aspirin; Z79.51 Long term (current) use of inhaled steroids; Z79.899 Other long term (current) drug therapy
CPT/HCPCS: 36415; 36600; 71010; 71020; 80048; 80053; 80202; 81003; 82550; 82553; 82805; 83036; 83605; 83735; 83880; 84100; 84484; 85025; 85379; 85610; 85730; 87040; 87070; 87086; 87205; 87502; 93005; 93306; 94640; 94660; 94760; 96361; 96365; 96375; 99291

== ENCOUNTER → 2016-08-23 | Outpatient (CLI) | payer BC | LOC: MMGSC 17:22 | PROVIDERS: ATTEND Family Medicine | DX: R82.90 Unspecified abnormal findings in urine (principal) | CPT/HCPCS: 87086 ==

== ENCOUNTER → 2016-08-24 | Outpatient (CLI) | payer BC ==
[2016-08-24 19:42] LABS: Basophils # (A) 0.1 k/uL (0-0.2); Basophils % (A) 1 %; CH 25.5; CHCM 28.4; Eosinophils # (A) 0.1 k/uL (0-0.7); Eosinophils % (A) 2 %; HCT 44.4 % (34.0-46.0); HDW 3.03; HGB 13.1 gm/dL (11.4-16.0); Hypochromasia Marked; Luc # (Auto) 0.11; Luc % (Auto) 2; Lymphocytes % (A) 20 %; MCH 26.6 pg (25.0-35.0); MCHC 29.5 g/dL (31.0-37.0); MCV 90.2 fL (80.0-100.0); Monocytes # (A) 0.5 k/uL (0-1.0); Monocytes % (A) 10 %; Neutrophils # (A) 3.2 k/uL (1.3-7.7); Neutrophils % (A) 65 %; RBC 4.92 m/uL (3.80-5.40); RDW 14.1 % (11.5-15.5); WBC 4.9 k/uL (3.8-10.6); WBC (Perox) 5.47
[2016-08-24 20:08] LABS: ALT 38 U/L (9-52); AST 38 U/L (14-36); Alkaline Phosphatase 68 U/L (38-126); Blood Urea Nitrogen 31 mg/dL (7-17); Calcium 9.4 mg/dL (8.4-10.2); Cholesterol 181 mg/dL (<200); Glucose 91 mg/dL (74-99); HDL Cholesterol 104 mg/dL (40-60); Non-African American GFR(MDRD) >60 (>60 ml/min/1.73 sqM); Potassium 4.2 mmol/L (3.5-5.1); Sodium 137 mmol/L (137-145); Total Bilirubin 0.5 mg/dL (0.2-1.3); Total Protein 6.8 g/dL (6.3-8.2); Triglycerides 53 mg/dL (<150)
[2016-08-24 20:15] LABS: Anion Gap 9 mmol/L
[2016-08-24 20:59] LABS: Carbon Dioxide 48 mmol/L (22-30); Chloride 80 mmol/L (98-107)
== END ==
LOC: MMGSC 11:03
PROVIDERS: ATTEND Family Medicine
DX: Z00.00 Encounter for general adult medical examination without abnormal findings (principal)
CPT/HCPCS: 36415; 80053; 80061; 84439; 84443; 85025

== ENCOUNTER → 2016-09-07 | Outpatient (CLI) | payer BC ==
[2016-09-07 17:36] LABS: ABG HCO3 58 mmol/L (21-25); ABG PCO2 78 mmHg (35-45); ABG PH 7.49 (7.35-7.45); ABG PO2 60 mmHg (83-108)
[2016-09-07 17:37] LABS: ABG TCO2 60 mmol/L (19-24)
== END | disposition home or self-care (01) ==
LOC: LABWHC1 16:40
PROVIDERS: ATTEND Internal Medicine Critical Care Medicine
DX: J44.9 Chronic obstructive pulmonary disease, unspecified (principal)
CPT/HCPCS: 36600; 82805